=== PATIENT | female | born 1990 | race Caucasian/White ===

== ENCOUNTER 2017-09-05 10:22 | Emergency (ER) | payer BC ==
[~2017-09-05] VITALS: Ht 162.6 cm; Wt 102.0 kg
[2017-09-05] MEDS ORDERED: AMOXICILLIN500 MG PO (12:02)
[2017-09-05 12:27] VITALS: BP 101/63
== END 2017-09-05 12:27 | disposition home or self-care (01) ==
LOC: EME 10:22
PROVIDERS: Emergency Medicine
DX: J02.0 Streptococcal pharyngitis (principal); F17.200 Nicotine dependence, unspecified, uncomplicated
CPT/HCPCS: 71010; 87502; 87651 90; 99281; 99284